=== PATIENT | male | born 1975 | race Caucasian/White ===

== ENCOUNTER 2017-10-19 17:34 | Emergency (ER) | payer OTHER ==
[~2017-10-19] VITALS: Ht 175.3 cm; Wt 68.9 kg
[2017-10-19 17:38] VITALS: Ht 175.3 cm; Wt 68.9 kg
[2017-10-19] MEDS ORDERED: PROTONIX20 MG (19:37)
[2017-10-19] MEDS ORDERED: CYMBALTA60 M1 PO (19:38)
[2017-10-19 19:44] VITALS: BP 108/75
== END 2017-10-19 18:44 | disposition home or self-care (01) ==
LOC: ED 17:34
DX: R10.32 Left lower quadrant pain (principal); Z88.0 Allergy status to penicillin; Z88.2 Allergy status to sulfonamides
CPT/HCPCS: 87491; 87591; J1885